=== PATIENT | male | born 1960 | race African-American/Black ===

== ENCOUNTER 2017-09-10 06:51 | Inpatient (IN) ==
[2017-09-06 13:07] LABS: Basophils % 0.3 % (0.0-0.8); Eosinophils # 0.2 10*3/uL (0.0-0.87); Eosinophils % 3.2 % (0.00-10.9); Hematocrit 43.8 VOL% (42.0-52.0); Hemoglobin 14.5 GM/DL (14.0-18.0); Immature Granulocytes % 0.6 %; Immature Granulocytes Absolute 0.04 #; Lymphocytes # 2.4 10*3/uL (1.4-4.0); Lymphocytes % 35.2 % (21.2-54.2); Mean Corpuscular HGB Conc 33.1 GM/DL (32-36); Mean Corpuscular Hemoglobin 34 PG (27-34); Mean Corpuscular Volume 102.1 FL (87-102); Mean Platelet Volume 10.4 FL (9.6-12.0); Monocytes # 0.7 10*3/uL (0.11-0.8); Monocytes % 10.8 % (1.7-12.7); Neutrophils # 3.4 10*3/uL (1.4-7.4); Neutrophils % 49.9 % (38.7-73.9); Platelet Count 173 T/CUMM (130-400); Red Blood Count 4.29 MC/CUMM (3.8-5.5); White Blood Count 6.8 T/CUMM (4-12)
[2017-09-06 13:14] LABS: PT Patient Result 10.9 SECS
[2017-09-06 13:44] LABS: Albumin 3.9 G/DL (3.4-5.0); Bilirubin,Total 0.7 MG/DL (0.2-1.0); Calcium 9.4 MG/DL (8.5-10.1); Osmolality,Calculated 285.1 MOS/KG (273-304); Total Protein 7.4 G/DL (6.4-8.3)
[~2017-09-10 06:51] MED LIST: MIDAZOLAM 2 MG/2 ML VIAL IV ONE; ceFAZolin 1,000 MG VIAL ONE; ceFAZolin 1,000 MG in SYRINGE 1 EACH IV ONE; fentaNYL 100 MCG/2 ML VIAL IV ONE
[2017-09-10 07:36] LABS: Basophils % 0.3 % (0.0-0.8); Eosinophils # 0.2 10*3/uL (0.0-0.87); Eosinophils % 4.1 % (0.00-10.9); Hematocrit 40.5 VOL% (42.0-52.0); Hemoglobin 13.6 GM/DL (14.0-18.0); Immature Granulocytes % 0.9 %; Immature Granulocytes Absolute 0.05 #; Lymphocytes # 2.1 10*3/uL (1.4-4.0); Lymphocytes % 35.3 % (21.2-54.2); Mean Corpuscular HGB Conc 33.6 GM/DL (32-36); Mean Corpuscular Hemoglobin 34 PG (27-34); Mean Corpuscular Volume 101.5 FL (87-102); Monocytes # 0.6 10*3/uL (0.11-0.8); Monocytes % 10.8 % (1.7-12.7); Neutrophils # 2.9 10*3/uL (1.4-7.4); Neutrophils % 48.6 % (38.7-73.9); Platelet Count 145 T/CUMM (130-400); Red Blood Count 3.99 MC/CUMM (3.8-5.5); Red Cell Distribution Width 12.1 % (9.3-17.3); White Blood Count 5.9 T/CUMM (4-12)
[2017-09-10 07:45] LABS: PT Patient Result 10.9 SECS
[2017-09-10] MEDS: SODIUM CHLORIDE 0.45% 1,000 ML IV SCH (08:20)
[2017-09-10] MEDS ORDERED: DIAZEPAM 5 MG TABLET PO ONE (08:48)
[2017-09-10] MEDS ORDERED: HEPARIN/NACL 0.9% 2 UNITS/ML 2,000 ML IV ONE (08:50)
[2017-09-10] MEDS ORDERED: fentaNYL 100 MCG/2 ML VIAL ONE (08:51)
[2017-09-10] MEDS ORDERED: MIDAZOLAM 2 MG/2 ML VIAL ONE (08:51)
[2017-09-10] MEDS ORDERED: HEPARIN/NACL 0.9% 2 UNITS/ML 1,000 ML IV ONE (10:14)
[2017-09-10] MEDS ORDERED: DICLOFENAC SODIUM 50 MG TABLET PO PRN (16:34)
[2017-09-11] MEDS ORDERED: FAMOTIDINE 20 MG TABLET PO ONE (05:30)
[2017-09-11 06:53] LABS: Osmolality,Calculated 282.3 MOS/KG (273-304)
[2017-09-11] MEDS: amLODIPine 5 MG TABLET PO SCH ×2 (07:46→14:08)
[2017-09-11] MEDS: LISINOPRIL/HCTZ 20-12.5 MG TABLET PO SCH ×2 (07:47→14:08)
[2017-09-11] MEDS ORDERED: ceFAZolin 2,000 MG in PREMIX 1 EACH IV ONE (08:00)
[2017-09-11] MEDS ORDERED: TISSUE ADHESIVE 1 EACH APPLICATOR TOP ONE (08:29)
[2017-09-11] MEDS ORDERED: HEPARIN 5,000 UNIT/1 ML VIAL ONE (08:29)
[2017-09-11] MEDS ORDERED: VANCOMYCIN 500 MG VIAL ONE (08:30)
[2017-09-11] MEDS ORDERED: LIDOCAINE 1% 20 ML VIAL ONE (08:30)
[2017-09-11] MEDS ORDERED: THROMBIN TOPICAL (RECOMBINANT) 5,000 UNIT VIAL TOP ONE (08:30)
[2017-09-11] MEDS: SODIUM CHLORIDE 0.45% 1,000 ML IV SCH (08:57)
[2017-09-11] MEDS ORDERED: ONDANSETRON 4 MG/2 ML VIAL IV PRN ×2 (11:00→11:27)
[2017-09-11] MEDS ORDERED: fentaNYL 100 MCG/2 ML VIAL ONE (11:26)
[2017-09-11] MEDS ORDERED: HYDROmorphone 2 MG/1 ML VIAL ONE (11:26)
[2017-09-11] MEDS ORDERED: MIDAZOLAM 2 MG/2 ML VIAL ONE (11:26)
[2017-09-11] MEDS ORDERED: ONDANSETRON 4 MG/2 ML VIAL ONE ×2 (11:26→11:27)
[2017-09-11] MEDS ORDERED: SEVOFLURANE 1 UNIT/15 MINUTE INH ONE (11:26)
[2017-09-11] MEDS ORDERED: PHENYLEPHRINE 1 MG/10 ML SYRINGE IV ONE (11:27)
[2017-09-11] MEDS ORDERED: ROCURONIUM 100 MG/10 ML VIAL IV ONE (11:27)
[2017-09-11] MEDS ORDERED: ETOMIDATE 40 MG/20 ML VIAL IV ONE (11:27)
[2017-09-11] MEDS ORDERED: DEXAMETHASONE 10 MG/1 ML VIAL ONE (11:27)
[2017-09-11] MEDS ORDERED: ESMOLOL 100 MG/10 ML VIAL IV ONE (11:27)
[2017-09-11] MEDS ORDERED: KETOROLAC 30 MG/1 ML VIAL ONE (11:29)
[2017-09-11] MEDS ORDERED: PROTAMINE SULFATE 50 MG/5 ML VIAL IV ONE (11:29)
[2017-09-11] MEDS ORDERED: HEPARIN 10,000 UNIT/10 ML VIAL ONE (11:29)
[2017-09-11] MEDS ORDERED: GLYCOPYRROLATE 0.4 MG/2 ML VIAL ONE (11:29)
[2017-09-11] MEDS ORDERED: ACETAMINOPHEN 1,000 MG/100 ML VIAL IV ONE (11:29)
[2017-09-11] MEDS ORDERED: NEOSTIGMINE 10 MG/10 ML VIAL ONE (11:29)
[2017-09-11] MEDS: HYDROmorphone 2 MG/1 ML VIAL IV PRN ×5 (11:30→16:01)
[2017-09-11] MEDS: LACTATED RINGERS 1,000 ML IV SCH ×2 (11:36→21:07)
[2017-09-11] MEDS: CHOLECALCIFEROL 1,000 UNIT TABLET PO SCH (15:43)
[2017-09-11] MEDS: LORATADINE 10 MG TABLET PO SCH (15:43)
[2017-09-11] MEDS: ASPIRIN EC 81 MG TABLET PO SCH (15:44)
[2017-09-12] MEDS: LACTATED RINGERS 1,000 ML IV SCH (03:27)
[2017-09-12] MEDS: SODIUM CHLORIDE 0.45% 1,000 ML IV SCH (08:58)
[2017-09-12] MEDS ORDERED: ASPIRIN CHEW 81 MG TABLET PO SCH (09:00)
[2017-09-12] MEDS: ASPIRIN EC 81 MG TABLET PO SCH (09:10)
[2017-09-12] MEDS: LISINOPRIL/HCTZ 20-12.5 MG TABLET PO SCH (09:10)
[2017-09-12] MEDS: CHOLECALCIFEROL 1,000 UNIT TABLET PO SCH (09:10)
[2017-09-12] MEDS: CLOPIDOGREL 75 MG TABLET PO SCH (09:11)
[2017-09-12] MEDS: LORATADINE 10 MG TABLET PO SCH (09:11)
[2017-09-12] MEDS: amLODIPine 5 MG TABLET PO SCH (09:11)
[2017-09-12] MEDS: HYDROmorphone 2 MG/1 ML VIAL IV PRN ×2 (09:17→19:00)
[2017-09-13] MEDS: HYDROmorphone 2 MG/1 ML VIAL IV PRN ×2 (00:26→09:22)
[2017-09-13 08:33] VITALS: BP 116/70
[2017-09-13] MEDS: CHOLECALCIFEROL 1,000 UNIT TABLET PO SCH (09:23)
[2017-09-13] MEDS: LISINOPRIL/HCTZ 20-12.5 MG TABLET PO SCH (09:24)
[2017-09-13] MEDS: LORATADINE 10 MG TABLET PO SCH (09:24)
[2017-09-13] MEDS: amLODIPine 5 MG TABLET PO SCH (09:24)
[2017-09-13] MEDS: CLOPIDOGREL 75 MG TABLET PO SCH (09:24)
[2017-09-13] MEDS: ASPIRIN EC 81 MG TABLET PO SCH (09:24)
== END 2017-09-13 11:41 | disposition home or self-care (01) | DRG 254 ==
LOC: N.RAD 06:51 → N.SDSINP 06:53 → N.5E 13:08
PROVIDERS: ADMIT Surgery; ATTEND Surgery
PROC: IRAGPEL (2017-09-10 09:20)